=== PATIENT | female | born 1990 | race Two or more races ===

== ENCOUNTER 2023-07-22 13:42 | Emergency (ER) | payer BC, SELFPAY ==
[2023-07-22 13:47] VITALS: BP 176/94
[2023-07-22 14:50] VITALS: BMI 23.4
--- NOTE | 2023-07-22 14:50 | ED.GENMED ---
History of Present Illness
General
Chief Complaint: Heart Rate Problem
Source: patient
Exam Limitations: none
Time Seen by Provider: 07/22/23 14:15
Nursing documentation reviewed up to this point in time: agreed with
Travel History
Have you had any contact with someone who has COVID-19?: No
Do you have any symptoms of coronavirus? Fever > 100 degrees, chills, cough, shortness of breath, sore throat, loss of taste or smell, muscle aches, or headache?: No
History of Present Illness
History of Present Illness:
32-year-old female with no chronic medical issues who presents to the emergency department for evaluation of chest pain, scapular pain and palpitations. Patient reports patient was that she was sick with COVID 2 weeks ago, last week noted she was
started have scapular pain. She describes this as a constant burning sensation. Over the past few days she has noticed that she is having some intermittent sharp chest pains. She has been treating her symptoms with ibuprofen with some
improvement. She says she is having worsening palpitations�she was initially started on Medrol Dosepak last week because she was having persistent COVID symptoms; she noted she was having palpitations and tachycardia with a max heart rate in the
170s and this was initially attributed to the Medrol Dosepak and so it was discontinued. Nevertheless her tachycardia and palpitations have persisted over the past week. She says they are much worse when she lays flat. She denies any shortness of
breath. She denies any known cardiac history.
Review of Systems
Review of Systems
All Other Systems: ROS reviewed and negative except as documented in HPI and ROS
Constitutional: Denies fever or chills
EENT: Reports other (Congestion)
Respiratory: Denies trouble breathing
Cardiac: Reports chest pain and palpitations; Denies diaphoresis
ABD/GI: Denies abdominal pain, nausea, vomiting or diarrhea
: Denies flank pain
Musculoskeletal: Reports back pain (Scapular pain); Denies neck pain
Neurological: Denies dizzy
Phy Exam
Physical Exam
Physical Exam:
General: Awake, alert; no acute distress
Head: Normocephalic, atraumatic
Eyes: Conjunctiva normal
Throat: Airway intact, handling secretions
Neck: Trachea midline, supple without meningismus
Lungs: Clear to auscultation bilaterally, no wheezing, rales, rhonchi
Heart: Tachycardia with regular rhythm, no murmurs, gallops, or rubs
Abd: Soft, non distended, nontender
Neuro: No gross deficits
Skin: no rash
Extremities: No edema in extremities, equal pulses in all extremities
Scores
Heart Failure Risk
Heart Failure Risk Score: Not Applicable
Heart Score for Chest Pain Patients
STEMI patient?: No
History: Slightly or Non-Suspicious
ECG: Normal
Age: </= 45 years
Risk Factors: No Risk Factors
Troponin: </= Normal Limit
Heart Score for Chest Pain Patients: 0
Heart Score Risk: 2.5% MACE over next 6 weeks
Withdrawal Assessment of Alcohol
Withdrawal Assessment Completed?: Not applicable
Course
Orders/Labs/Results
Orders:
Orders
07/22/23 13:48
EKG [Electrocardiogram (*1)] Urgent
Reason for Study: Chest Pain
EKG- Treatment ONCE
07/22/23 14:30
D-Dimer Urgent
07/22/23 14:41
COVID-19 Antigen Urgent
Source: Nasal Swab
Complete Blood Count/With Diff Urgent
Comprehensive Metabolic Panel Urgent
Erythrocyte Sed Rate Urgent
Comment: ADD ON
TSH Reflex To Free T4 Urgent
Troponin I Urgent
07/22/23 14:49
CR Chest - 2 Views Urgent
Comment:
Reason For Exam: chest pain
07/22/23 15:59
CARDIOLOGY CONSULT Urgent
Consulting Provider: Lloyd Ann
Was physician already notified: Yes
07/22/23 16:02
Echo 2D MMode Color/Doppler Urgent
Reason for Study: chest pain, palpitations, tachycardia
Cardiology Consult: Lloyd Ann
07/22/23 17:01
Add On- LAB Urgent
Tests Added?: esr
07/23/23 06:00
Holter Monitor and Scan*(3) IN AM
Reason for Study: palpitations, chest discomfort
Comment: 48 hours. see order in eCW
Abnormal Lab Results
07/22/23
14:41
Hct 35.5 L %
(37.0-47.0)
MPV 10.5 H fL
(7.4-10.4)
Absolute Monos (auto) 0.8 H 10^3/uL
(0.1-0.6)
Monocytes % 10.3 H %
(1.7-9.3)
Glucose 114 H mg/dl
(70-99)
07/22/23 14:41
07/22/23 14:41
Vital Signs
Initial and Last Documented VS:
Initial Vital Signs
Temp Pulse Resp BP Pulse Ox
36.9 C 142 18 176/94 100
07/22/23 13:47 07/22/23 13:47 07/22/23 13:47 07/22/23 13:47 07/22/23 13:47
Last Documented Vital Signs
Temp Pulse Resp BP Pulse Ox
36.9 C 93 15 115/76 99
07/22/23 13:47 07/22/23 17:02 07/22/23 14:51 07/22/23 17:02 07/22/23 17:02
MDM/Problems Addressed
Differential Diagnosis Includes:
Pericarditis, myocarditis, PE, pneumonia, pneumothorax
MDM/Problems Addressed:
32-year-old female presents for evaluation of scapular pain and chest pain, palpitations and tachycardia in the setting of recent COVID infection. Hypertensive and tachycardic in triage. Afebrile, normal pulse ox, normal respiratory rate.
Physical exam as above. EKG shows sinus tachycardia. Plan to check labs including CBC and a CMP, D-dimer, troponin, thyroid studies. Will check chest x-ray. Provide some fluids. Monitor closely reassess after the above.
Initial labs reviewed: CBC unremarkable, CMP no clinically significant abnormalities. Troponin undetectable. D-dimer negative. Thyroid studies normal. COVID was negative. Chest x-ray reviewed) by me shows no acute pathology. She does still
have some resting tachycardia. Discussed with cardiology recommended adding ESR concern for possibly pericarditis; they will evaluate. Will plan for echocardiogram.
Echocardiogram unremarkable. Cardiology evaluated at bedside�work appears been negative plan to discharge and set up for outpatient Holter monitor to be placed tomorrow morning. Patient feels comfortable with this plan. Spoke about return
precautions all questions answered.
Acute Exacerbation and/or Progression of Chronic Illness:
Acute hypertensive
Acute Exacerbation and/or Progression of Chronic Illness: HTN
*Radiology
Radiology exam reviewed: preliminary read by ED provider and radiology read reviewed
*Pulse Oximetry
Patient hypoxic: no
*EKG
Interpreted by ED Provider?: Yes
Heart Rate: 122
Rate: tachycardiac
Rhythm: sinus and sinus tachycardia
[place]: normal axis
Interval: normal interval
QRS Pattern: normal QRS
Ischemia: no ischemia
*Critical Care Note
Total Time (30-74mins, 75-104mins- exclusive of procedures): Not Applicable
Data Reviewed
Source: patient
Patient Management
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
ED Attending Note
-
Portions of this chart may have been created with voice recognition software.� Occasional wrong word or��sound alike� substitutions may have occurred due to the inherent limitations of voice recognition software.
Discharge Plan
Departure
Patient Disposition: Home (Routine Discharge)
Date of Disposition: 07/22/23
Time of Disposition: 17:33
Patient with high blood pressure during this ER visit?: Yes
Discharge Problem:
Palpitations, Chest pain, Tachycardia
Instructions: Palpitations (DC), Chest Pain DCA Follow Up
Referrals:
Nicolas Abbott MD [Active] - Keep scheduled appt
Gurvinder Kramer DO [Family Provider] -
Activity Restrictions/Additional Instructions:
Thank you for visiting the Emergency Department at [facility].
1. Please schedule a follow up appointment as directed. Call first thing tomorrow morning to make an appointment.
2. If indicated, please take your medications as instructed and indicated on discharge paperwork.
3. If any of your symptoms do not improve, or persist, or become more severe within 6-12 hours, please return to the emergency department for further care.
4. Please return to the emergency department if you develop a headache, neck pain/stiffness, fever greater than 100.4F, chest pain, shortness of breath, persistent nausea, vomiting, slurred speech, difficulty walking, numbness/tingling, weakness,
signs of infection or any other symptoms that are worrisome to you.
Please call [phone] if you have any questions.
Interventions
Interventions:
*Risk Screen - Suicide Last Done: 07/22/23 13:46
*General Assessment Last Done: 07/22/23 13:46
*Neglect/Abuse Screening Last Done: 07/22/23 13:46
ED- Fall Risk Assessment Last Done: 07/22/23 13:47
*ED COVID-19 Vaccine History Last Done: 07/22/23 14:52
ED- Cardiac Assessment Last Done: 07/22/23 14:52
ED- Pulmonary Assessment Last Done: 07/22/23 14:52
[2023-07-22 14:51] VITALS: BP 116/75
[2023-07-22 14:55] LABS: % Basophils 0.8 % (0-2); % Immature Granulocytes 0.1 % (0-0.5); % Lymphocytes 42.3 % (20.5-51.1); % Monocytes 10.3 % (1.7-9.3); % Neutrophils 42.5 % (42.2-75.2); Absolute Basophils 0.1 10^3/uL (0-0.2); Absolute Eosinophils 0.3 10^3/uL (0-0.7); Absolute Lymphocytes 3.2 10^3/uL (1.2-3.4); Absolute Monocytes 0.8 10^3/uL (0.1-0.6); Absolute Neutrophils 3.2 10^3/uL (1.4-6.5); Hematocrit 35.5 % (37.0-47.0); Hemoglobin 12.4 g/dL (12.0-16.0); Mean Corp Hgb Conc. 34.9 g/dL (33.0-37.0); Mean Corpuscular Hgb 28.8 pg (27.0-31.0); Mean Corpuscular Volume 82.4 fL (81.0-99.0); Mean Platelet Volume 10.5 fL (7.4-10.4); Nucleated Red Blood Cells % 0 %; Platelet Count 246 10^3/uL (130-400); Red Blood Cell Count 4.31 10^6/uL (4.20-5.40); Red Cell Dist. Width 12.6 % (11.5-14.5); White Blood Cell Count 7.5 10^3/uL (4.8-10.8)
[2023-07-22 15:07] LABS: COVID-19 Antigen Negative (Negative)
[2023-07-22 15:12] LABS: ALT (SGPT) 14 U/L (0-35); AST (SGOT) 21 U/L (14-36); Albumin 4.1 g/dl (3.5-5.0); Alkaline Phosphatase 53 U/L (38-126); Blood Urea Nitrogen 12 mg/dl (7-17); Carbon Dioxide 26 mmol/L (22-30); Chloride 106 mmol/L (98-107); Estimated Creatinine Clearance 109 ml/min; Glucose 114 mg/dl (70-99); Potassium 3.9 mmol/L (3.5-5.1); Sodium 137 mmol/L (135-145); Total Bilirubin 0.5 mg/dl (0.2-1.3); Total Protein 7.1 g/dl (6.3-8.2); eGFR > 60.00
[2023-07-22 15:20] LABS: Troponin I < 0.012 ng/ml
[2023-07-22 15:24] LABS: D-Dimer < 0.27 ug/mlFEU (0.00-0.50)
[2023-07-22 15:40] LABS: TSH Reflex To Free T4 3.68 uIU/ml (0.47-4.68)
--- NOTE | 2023-07-22 16:46 | CON.CAR ---
Addendum entered and electronically signed by Nicolas Abbott MD 07/22/23 17:20:
Attending addendum: Patient seen and examined. PA note reviewed and findings independently confirmed by me. 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
several weeks ago. She has recovered from her COVID viral infection but began noticing intermittent chest and back discomfort as well as palpitations. She was seen in an urgent care facility and started on Solu-Medrol steroid taper. She noticed
intermittent palpitations with no associated dizziness, lightheadedness, syncope, or near syncope. The chest pain persisted intermittently with palpitations and she presented to [place] emergency department for further evaluation. Her troponin,
TSH, chemistries, CBC are within normal limits. An echocardiogram was performed and left ventricular function was normal with no regional wall motion abnormalities. Her electrocardiogram is notable for sinus tachycardia with no acute ST-T changes.
Physical exam
GEN: Young female who is seen sitting in bed. She is AAO x 3. No acute distress
HEENT: NC/AT, sclera are anicteric,
LUNGS: Clear to bases bilaterally. No wheezing or rhonchi
CV: Regular rate and rhythm. Tachycardic. Normal S1/S2. No S3, No S4. Murmur: None
ABD : Soft, NT, ND, No HSM. Bowel sounds are present.
EXT: No CCE
NEURO: No focal neurologic deficits
Echo 07/22/2023: LV: Normal size and function. EF hyperdynamic 65-70%. No WMA. RV: Normal, LA: Normal, RA: Normal, MV: No MR, AV: Trileaflet. No AAS or AI, TV: Normal with inability to estimate PAP given lack of TR jet.
Impression:
-Atypical chest discomfort
-Resting tachycardia with sinus tachycardia noted.: Normal echocardiogram, no anemia or thyroid issues. She is not febrile. Inappropriate sinus tachycardia
Recommendations:
-For completeness sake a 48-hour Holter will be placed
-Not sure if she will need any additional cardiovascular evaluation
Original Note:
Consultation
Consultation Request
Date/Time Consultation Performed: 07/22/23
Requesting Provider: Dr. Hassan
Performing Provider: Juliette Salgado PA-C for Dr. Abbtot
Reason for Consultation: palpitations, chest discomfort
Medical History
-
Chief Complaint: CP, palpitations
History of Present Illness:
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 She states she was pretty sick with this. She began to develop chest discomfort and tightness as well as
back discomfort. This was felt to be secondary to cough and she started ibuprofen. She had gone to urgent care and was prescribed a Medrol Dosepak. The day after she began her Medrol Dosepak she started with palpitations. On review of heart rate
ese on her phone, heart rates up into the 180s at times. She continued with pleuritic chest discomfort and heart racing. Due to this she stopped her steroids and ibuprofen. This past Thursday 07/20 she felt fine, however 4 AM Wednesday morning
developed recurrent palpitations requiring her to sit up to sleep. She also developed 10 out of 10 central discomfort. She restarted ibuprofen, with some relief. She states whenever her heart rate exceeds 120 she can feel her heart beating in her
ears and hands. She also reports the feeling of recent 'hot flashes'. She is COVID-negative today in the ER. Troponin negative x 1. Cardiology consulted for evaluation. Denies history of cardiac issues including prior arrhythmia or
palpitations. Denies thyroid issues. Denies family history of clotting disorders.
PMH:
none
Past Medical History
Past Medical History: None
Social History
Personal:
Living: With Family
Employment: Employed
Family History
Family History: CAD (family history of VA at 55 in father)
Allergies / Home Medications
Allergy/AdvReac Type Severity Reaction Status Date / Time
No Known Allergies Allergy Unverified 07/22/23 13:46
Review of Systems
-
History Source: Patient
All other systems: Negative unless noted
Physical Exam
Vital Signs
Temp Pulse Resp BP Pulse Ox
98.4 F 105 15 116/75 100
07/22/23 13:47 07/22/23 14:51 07/22/23 14:51 07/22/23 14:51 07/22/23 14:51
Lab Results
07/22/23 14:41
07/22/23 14:41
Troponin I < 0.012 ng/ml 07/22/23 14:41
Physical Exam
General: No Apparent Distress and Comfortable
HEENT: Normocephalic, Anicteric and Moist Mucous Membranes
Respiratory: Clear and Non Labored Respirations
Cardiac: S1/S2 and Regular Rhythm
GI: Soft, Non Tender, Non Distended and Normal Bowel Sounds
Musculoskeletal: No Clubbing, No Cyanosis and No Edema
Skin: Warm and Dry
Neuro: AO x 3
Impression / Plan
-
Primary Correctional Supervisor: none
Assessment:
Pleuritic chest/back discomfort
Palpitations
Sinus tachycardia
Cough
Recent covid illness
Negative troponin x1
ECHO 07/22/23: pending
Plan:
-Patient presents with pleuritic chest and back discomfort as well as palpitations in the setting of recent COVID illness. tested covid negative in ER
-EKG sinus tachycardia
-Troponin negative x 1
-echo pending
-hold on further steroids
-ESR pending
-will plan for 48 hour holter monitor to be placed in AM, cardiac services to call patient in AM
-continue supportive care of recent covid illness, including adequate hydration
Data Reviewed
-
EKG: Tracing Personally Visualized and interpreted
Labs: Labs Reviewed by me
[2023-07-22 17:02] VITALS: BP 115/76
[2023-07-22 17:51] LABS: Erythrocyte Sed Rate 11 mm/hour (0-20)
== END 2023-07-22 17:54 | disposition home or self-care (01) ==
LOC: EMR 13:42
PROVIDERS: CONSULT PHYSICIAN Nuclear Medicine Nuclear Cardiology; EMERGENCY PHYSICIAN Emergency Medicine; FAMILY PHYSICIAN Family Medicine
DX: R00.2 Palpitations (principal); R07.89 Other chest pain; R00.0 Tachycardia, unspecified; Z82.49 Family history of ischemic heart disease and other diseases of the circulatory system
CPT/HCPCS: 99283; 71046; 80053; 84443; 84484; 85025; 85379; 85652; 87811; 93005; 93306

== ENCOUNTER → 2023-07-23 09:56 | Outpatient (REF) | payer BC, SELFPAY | LOC: RCS 09:56 | PROVIDERS: ATTENDING PHYSICIAN Internal Medicine Interventional Cardiology; FAMILY PHYSICIAN Family Medicine | DX: R00.2 Palpitations (principal); R00.0 Tachycardia, unspecified; R07.89 Other chest pain | CPT/HCPCS: 93225; 93226 ==

== ENCOUNTER → 2023-12-13 05:50 | Outpatient (REF) | payer BC, SELFPAY | LOC: EMG 05:50 | PROVIDERS: ATTENDING PHYSICIAN Orthopaedic Surgery; FAMILY PHYSICIAN Family Medicine | DX: R20.0 Anesthesia of skin (principal) | CPT/HCPCS: 95886; 95910 ==

== ENCOUNTER → 2023-12-18 07:25 | Outpatient (REF) | payer BC, SELFPAY | LOC: MRI 3T 07:25 | PROVIDERS: ATTENDING PHYSICIAN Orthopaedic Surgery; FAMILY PHYSICIAN Family Medicine | DX: M25.521 Pain in right elbow (principal) | CPT/HCPCS: 73221 ==

== ENCOUNTER 2024-01-31 21:23 | Emergency (ER) | payer BC, SELFPAY ==
[2024-01-31 21:27] VITALS: BP 156/88
[2024-01-31 22:00] VITALS: BP 119/76; BMI 25.3
[2024-01-31 22:14] LABS: % Basophils 0.5 % (0-2); % Eosinophils 2.5 % (0-6); % Immature Granulocytes 0.5 % (0-0.5); % Lymphocytes 19.7 % (20.5-51.1); % Monocytes 8.4 % (1.7-9.3); % Neutrophils 68.4 % (42.2-75.2); Absolute Eosinophils 0.2 10^3/uL (0-0.7); Absolute Lymphocytes 1.2 10^3/uL (1.2-3.4); Absolute Monocytes 0.5 10^3/uL (0.1-0.6); Absolute Neutrophils 4.1 10^3/uL (1.4-6.5); Hematocrit 30.7 % (37.0-47.0); Hemoglobin 10.7 g/dL (12.0-16.0); Mean Corp Hgb Conc. 34.9 g/dL (33.0-37.0); Mean Corpuscular Hgb 28.2 pg (27.0-31.0); Mean Platelet Volume 10.5 fL (7.4-10.4); Nucleated Red Blood Cells % 0 %; Platelet Count 152 10^3/uL (130-400); Red Blood Cell Count 3.79 10^6/uL (4.20-5.40); Red Cell Dist. Width 13.2 % (11.5-14.5)
[2024-01-31 22:27] LABS: Lactic Acid 1.3 mmol/L (0.7-2.0)
[2024-01-31] MEDS: TYLENOL 1000 MG PO (22:32)
[2024-01-31 22:45] LABS: HCG, Serum Qualitative Screen Negative
[2024-01-31 22:54] LABS: ALT (SGPT) 17 U/L (0-35); AST (SGOT) 23 U/L (14-36); Albumin 3.9 g/dl (3.5-5.0); Alkaline Phosphatase 51 U/L (38-126); Blood Urea Nitrogen 12 mg/dl (7-17); Calcium 9.3 mg/dl (8.4-10.2); Carbon Dioxide 27 mmol/L (22-30); Chloride 104 mmol/L (98-107); Estimated Creatinine Clearance > 125 ml/min; Glucose 114 mg/dl (70-99); Potassium 3.8 mmol/L (3.5-5.1); Sodium 141 mmol/L (135-145); Total Bilirubin 0.4 mg/dl (0.2-1.3); Total Protein 6.5 g/dl (6.3-8.2); eGFR > 60.00
[2024-01-31 23:01] VITALS: BP 100/81
[2024-01-31] MEDS: NSS 1000 IV (23:25)
--- NOTE | 2024-01-31 23:50 | ED.GENMED ---
History of Present Illness
General
Chief Complaint: Fever
Source: patient and previous hospital records (Previous ED visit July of this year with complaints of chest pain/palpitations. Unremarkable ED evaluation as well as cardiology evaluation, echocardiogram within normal limits and follow-up Holter
monitor unremarkable)
Exam Limitations: none
Time Seen by Provider: 01/31/24 22:44
Nursing documentation reviewed up to this point in time: agreed with
History of Present Illness
History of Present Illness:
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 She admits to subjective fevers,
fatigue, malaise. She does have history of migraine headaches and states she suffered a migraine headache on Wednesday, January 25 associated with nausea and vomiting. Headache resolved with rest and a dose of naproxen. Then yesterday while in the
[place] prior to to [place] the airplane migraine returned accompanied with approximately 5 episodes of vomiting. She was evaluated at the health clinic at the airport and was given an antiemetic as well as naproxen with resolution of symptoms.
She was afebrile during that health clinic visit at the airport.
She reports COVID testing x 2 this past week have been negative.
She has not had a cough, no sore throat, no nasal congestion throughout the week but does admit to mild discomfort right ear after landing today and mild discomfort this afternoon right submandibular gland but continues to deny sore throat.
She is concerned for a small ecchymotic patch left forearm, small ecchymotic patch left anterior ankle that she noticed 2 to 3 days ago. No insightful injury. She denies itch.
Beginning 2 to 3 days ago she developed bilateral ankle edema, discomfort and a sense of mild swelling bilateral lower legs left leg greater than the right. She does admit to mild shortness of breath this evening and was unaware that she was
running a fever. Prior to tonight she has had no shortness of breath. She denies chest pain or palpitations, no abdominal pain, no neck pain, no back pain, no UTI symptoms. Appetite has been good.
She has had no diarrhea nor constipation.
She denies risk of , last normal menstrual period January 17, 2024.
No close contacts with similar symptoms.
She is sexually active, 1 partner.
She takes no medicines on a daily basis.
She did take a dose of naproxen around 12:30 PM today for generalized aches.
Past History
Past History
ED Past Medical History: Other (Migraine headaches) and Other (COVID URI July 2023)
ED Past Surgical History: None
Social History
Tobacco: Non-smoker
Alcohol: None
Drug: None
Living: with family
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
Family History
Family History: Other (Noncontributory)
Phy Exam
Physical Exam
Physical Exam:
GENERAL: 33-year-old woman appears her stated age, bright and alert, pleasant, appears in no acute distress. Noted to be febrile, initial oral temperature 101.4 �F.
EYE: pupils equal and reactive. anicteric
NECK: Supple, nontender, no meningismus, no significant adenopathy.
ENT: posterior pharynx is clear, oral mucosa is moist. Scant clear effusion behind noninjected right TM. Left TM is clear. Nares have significantly boggy mildly injected turbinates without mucopus.
CARDIAC: Regular rate and rhythm. no murmur. No rub.
LUNGS: no acute respiratory distress, intermittent scant rales right base otherwise clear to auscultation. Rare brief cough is noted.
ABDOMEN: Soft, nondistended, without focal tenderness, no r/g, no cvat. normoactive BS.
NEUROLOGICAL: Alert and oriented x3, no focal neuro deficits.
SKIN: Warm and dry, normal color, skin intact. There is a 3 cm ecchymotic patch left forearm, 2 to 3 cm vague ecchymotic patch left anterior ankle. There is no petechiae. Few scattered punctate minimally inflamed hair follicles bilateral lower
legs but no evidence of folliculitis.
MUSCULOSKELETAL: Very mild soft tissue swelling versus mild joint effusion bilateral ankles left greater than right but no joint erythema. Mild tenderness to left anterior ankle overlying vague ecchymotic patch. Peripheral pulses are full and
equal b/l.
PSYCH: Normal and appropriate interaction.
Course
Orders/Labs/Results
Orders:
Orders
01/31/24 22:02
Test Result ONCE
01/31/24 22:06
C-Reactive Protein Urgent
CMP [Comprehensive Metabolic Panel] Urgent
Complete Blood Count/With Diff Urgent
Erythrocyte Sed Rate Urgent
Comment: ADD ON
HCG, Serum Qualitative Screen Urgent
Lactic Acid Urgent
Lyme Progressive Urgent
01/31/24 22:30
Acetaminophen [Tylenol] 1,000 mg .ROUTE .STK-MED ONE
01/31/24 22:31
Acetaminophen [Tylenol] 1,000 mg PO NOW STA
01/31/24 23:06
Add On- LAB Urgent
Tests Added?: sed rate, CRP, lyme progressive
Urinalysis Reflex To Culture Urgent
Date Specimen was Collected: 01/31/24
Time Specimen was Collected: 23:18
01/31/24 23:07
CR Chest - 2 Views Urgent
Comment:
Reason For Exam: fever, intermittent cough
US Periph Venous LOWER Ext Ravi Urgent
Comment:
Reason For Exam: b/l LE edema. recent lengthy air travel
01/31/24 23:08
0.9% Sodium Chloride 1000 ml [Nss] 1,000 ml IV BOLUS
01/31/24 23:19
Blood Culture Routine
NIKKIE Source: Blood/Venous
Specimen Description:
Blood Culture Urgent
NIKKIE Source: Blood/Venous
Specimen Description:
Abnormal Lab Results
01/31/24
22:06
RBC 3.79 L 10^6/uL
(4.20-5.40)
Hgb 10.7 L g/dL
(12.0-16.0)
Hct 30.7 L %
(37.0-47.0)
MPV 10.5 H fL
(7.4-10.4)
Lymphocytes % 19.7 L %
(20.5-51.1)
Glucose 114 H mg/dl
(70-99)
01/31/24 22:06
01/31/24 22:06
Vital Signs
Initial and Last Documented VS:
Initial Vital Signs
Temp Pulse Resp BP Pulse Ox
101.4 F H 127 22 156/88 99
01/31/24 21:27 01/31/24 21:27 01/31/24 21:27 01/31/24 21:27 01/31/24 21:27
Last Documented Vital Signs
Temp Pulse Resp BP Pulse Ox
98.3 F 86 14 119/76 100
01/31/24 22:00 01/31/24 22:45 01/31/24 22:45 01/31/24 22:00 01/31/24 22:45
MDM/Problems Addressed
Differential Diagnosis Includes:
Acute febrile illness that appears to have begun prior to air travel to [facility]. May be viral syndrome, pneumonia, Lyme disease, acute inflammatory arthropathy, UTI, bacteremia, SIRS.
Thus far CBC reveals normal white blood cell count of 6.0. Mild anemia with hemoglobin of 10.7. Normal differential. Lactic acid is normal. Chemistries are pending.
Will add sed rate, CRP, Lyme titer. Will check urinalysis with reflex to urine culture.
Will check chest x-ray and due to recent air travel, complaints of bilateral lower leg swelling will check venous Doppler bilateral lower extremities.
Patient has been given Tylenol for fever and will initiate IV fluids.
COVID testing x 2 has been negative. No indication to repeat.
*Radiology
Radiology exam reviewed: preliminary read by ED provider (Chest x-ray is unremarkable. Clear lung mendoza.) and other (Venous Doppler bilateral lower extremities negative for DVT)
*Pulse Oximetry
Patient hypoxic: no
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
Rate: normal
Interpretation: normal
Rhythm: sinus
*Critical Care Note
Total Time (30-74mins, 75-104mins- exclusive of procedures): Not Applicable
Update Note
Update Note:
02/01/2024 0128 AM
Fever has dissipated with Tylenol and IV fluids.
Patient resting comfortably.
Labs are all unremarkable. Negative inflammatory markers, normal urinalysis, unremarkable chemistries. Lyme titer is pending.
Chest x-ray is unremarkable and bilateral lower leg ultrasounds are negative for DVT.
I suspect fever is viral in nature and recommend she continue with supportive measures, rest, stay well-hydrated, Tylenol versus NSAID for as needed fever.
Recommend she stay home from work until fever free for 24 hours and an out of work note has been provided for the next 2 days.
Prompt follow-up with PCP for recheck.
ED Attending Note
-
Portions of this chart may have been created with voice recognition software.� Occasional wrong word or��sound alike� substitutions may have occurred due to the inherent limitations of voice recognition software.
Discharge Plan
Departure
Patient Disposition: Home (Routine Discharge)
Date of Disposition: 02/01/24
Time of Disposition: 01:27
Patient with high blood pressure during this ER visit?: No
Condition: Good
Discharge Problem:
Acute viral syndrome
Instructions: Fever, Adult (DC), Viral Syndrome (DC)
Referrals:
Gurvinder Kramer, DO [Family Provider] - Call in 1-3 days for appt
Stand Alone Forms: Return to Work
Interventions
Interventions:
*Risk Screen - Suicide Last Done: 01/31/24 22:00
*General Assessment Last Done: 01/31/24 22:00
*Neglect/Abuse Screening Last Done: 01/31/24 22:00
ED- Fall Risk Assessment Last Done: 01/31/24 22:47
*ED COVID-19 Vaccine History Last Done: 01/31/24 22:00
ED- Neurological Assessment Last Done: 01/31/24 22:47
ED-Skin Assessment Last Done: 01/31/24 22:47
Discharge Date and Time
Print Language: BRITISH
[2024-02-01 00:12] LABS: Erythrocyte Sed Rate 15 mm/hour (0-20)
[2024-02-01 00:20] LABS: C-Reactive Protein < 5.00 mg/L (0.0-10.00)
[2024-02-01 00:43] VITALS: BP 125/83
[2024-02-01 00:51] LABS: Urine Albumin Negative (Neg - Trace); Urine Bilirubin Negative (Negative); Urine Character Clear (Clear); Urine Color Yellow; Urine Glucose Negative (Negative); Urine Ketone Negative (Negative); Urine Leukocyte Negative (Negative); Urine Nitrite Negative (Negative); Urine Occult Blood Negative (Negative); Urine Specific Gravity 1.005 (<1.030); Urine Urobilinogen Negative (Neg - 1+)
[2024-02-01 01:01] VITALS: BP 111/80
[2024-02-03 13:55] LABS: Lyme Antibody Screen, EIA Negative (Negative)
== END 2024-02-01 01:46 | disposition home or self-care (01) ==
LOC: EMR 21:23
PROVIDERS: EMERGENCY PHYSICIAN Emergency Medicine; FAMILY PHYSICIAN Family Medicine
DX: B34.9 Viral infection, unspecified (principal); H92.01 Otalgia, right ear; R58 Hemorrhage, not elsewhere classified; R60.0 Localized edema; R06.02 Shortness of breath; D64.9 Anemia, unspecified; G43.909 Migraine, unspecified, not intractable, without status migrainosus; Z86.16 Personal history of COVID-19
CPT/HCPCS: 99284; 96360; 71046; 80053; 81003; 83605; 84703; 85025; 85652; 86140; 86618; 87040; 93970

== ENCOUNTER → 2024-02-26 09:50 | Outpatient (REF) | payer OTHER, SELFPAY ==
[2024-02-28 05:18] LABS: Quantiferon Mitogen minus NIL 9.96 IU/mL; Quantiferon NIL 0.04 IU/mL; Quantiferon Plus TB1 minus NIL 0.18 IU/mL (<=0.34); Quantiferon Plus TB2 minus NIL 0.25 IU/mL (<=0.34); Quantiferon TB Gold Plus Negative (Negative)
== END ==
LOC: REG 09:50
PROVIDERS: ATTENDING PHYSICIAN Nurse Practitioner
DX: Z23 Encounter for immunization (principal)
CPT/HCPCS: 86480

== ENCOUNTER → 2024-06-07 14:48 | Outpatient (REF) | payer OTHER, SELFPAY ==
[2024-06-08 13:31] LABS: Varicella Zoster IgG (VZV) Positive
== END ==
LOC: OHS 14:48
PROVIDERS: ATTENDING PHYSICIAN Nurse Practitioner Family
DX: Z23 Encounter for immunization (principal)
CPT/HCPCS: 36415; 86787

== ENCOUNTER 2024-07-02 12:59 | Emergency (ER) | payer BC, SELFPAY ==
[2024-07-02 13:09] VITALS: BP 127/83
--- NOTE | 2024-07-02 14:20 | EDRN ---
Holland EMMANUEL in room w/ pt at this time.
--- NOTE | 2024-07-02 14:38 | ED.GENMED ---
History of Present Illness
<Carmencita Douglas PA-C - Last Filed: 07/02/24 19:16>
General
Chief Complaint: Skin Problem
Source: patient
Exam Limitations: none
Time Seen by Provider: 07/02/24 14:16
Nursing documentation reviewed up to this point in time: agreed with
History of Present Illness
History of Present Illness:
Patient is a 33-year-old female presenting with redness and swelling to nose. Patient reports initially noticing mild redness and pain on her left nostril approximately 4 to 5 days ago. She felt the area was red and warm. Patient reports
worsening pain and felt redness and swelling so she started a course of Augmentin. Today -patient states pain is more severe around 4 AM waking her up. She feels the pain was radiating into her left ear. Patient was seen at an urgent care
facility for evaluation concerned she might have a facial abscess and sent to the emergency department for CT scan.
Just prior to my assessment�patient feels that 'abscess 'has popped and is not draining. She reports some improvement in symptoms.
Patient denies any prior MRSA history.
Past History
<Carmencita Douglas PA-C - Last Filed: 07/02/24 19:16>
Past History
ED Past Medical History: Other (Migraine headaches) and Other (COVID URI July 2023)
ED Past Surgical History: None
Social History
Tobacco: Non-smoker
Alcohol: None
Drug: None
Living: with family
Employment: Employed ([facility] resident)
Family History
Family History: Other (Noncontributory)
Review of Systems
<Carmencita Douglas PA-C - Last Filed: 07/02/24 19:16>
Review of Systems
Allergies reviewed?: Yes
All Other Systems: ROS reviewed and negative except as documented in HPI and ROS
Phy Exam
<Carmencita Douglas PA-C - Last Filed: 07/02/24 19:16>
Physical Exam
Physical Exam:
Vitals: Patient's vital signs are stable. Afebrile
General: Patient is well appearing, no acute distress. Nontoxic appearing
Skin: Warm and dry, no rashes or lesions
Head: Normocephalic, atraumatic
Ears: Left ear canal patent with clear TM and visible landmarks.
Nose: Very mild erythema to the left nasal ala and inside left nostril with overlying tenderness. No warmth. Mild tenderness over left maxillary sinus without any overlying erythema or warmth.
Throat: No pharyngeal erythema. Uvula midline. Protecting airway
Neck: Normal ROM, no cervical spine tenderness
Cardiac: Regular rate
Pulm: No apparent respiratory distress
Abdomen: Nondistended
Extremities: No evidence of cyanosis or edema
Neuro: Grossly intact
Psychiatric: Normal affect.
Sepsis
<Carmencita Douglas PA-C - Last Filed: 07/02/24 19:16>
Sepsis Screening
Sepsis Assessment: Sepsis Ruled Out
Sepsis Screen
Sepsis Screen: Sepsis Ruled Out
Date: 07/02/24
Time: 19:13
Course
<CANDICE Wilkerson Last Filed: 07/02/24 19:16>
Orders/Labs/Results
Orders:
Orders
07/02/24 15:00
Wound Culture [Wound/Abscess/Other Culture] Urgent
NIKKIE Source: Face
Specimen Description: Left
Date Specimen was Collected: 07/02/24
Time Specimen was Collected: 14:59
Comment: Left nostril
Vital Signs
Initial and Last Documented VS:
Initial Vital Signs
Temp Pulse Resp BP Pulse Ox
98 F 78 18 127/83 100
07/02/24 13:09 07/02/24 13:09 07/02/24 13:09 07/02/24 13:09 07/02/24 13:09
Last Documented Vital Signs
Temp Pulse Resp BP Pulse Ox
98 F 78 18 127/83 100
07/02/24 13:09 07/02/24 13:09 07/02/24 13:09 07/02/24 13:09 07/02/24 13:09
<Naun Steiner DO - Last Filed: 07/02/24 14:46>
Orders/Labs/Results
Orders:
Orders
07/02/24 15:00
Wound Culture [Wound/Abscess/Other Culture] Urgent
NIKKIE Source: Face
Specimen Description: Left
Date Specimen was Collected: 07/02/24
Time Specimen was Collected: 14:59
Comment: Left nostril
Vital Signs
Initial and Last Documented VS:
Initial Vital Signs
Temp Pulse Resp BP Pulse Ox
98 F 78 18 127/83 100
07/02/24 13:09 07/02/24 13:09 07/02/24 13:09 07/02/24 13:09 07/02/24 13:09
Last Documented Vital Signs
Temp Pulse Resp BP Pulse Ox
98 F 78 18 127/83 100
07/02/24 13:09 07/02/24 13:09 07/02/24 13:09 07/02/24 13:09 07/02/24 13:09
<Carmencita Douglas PA-C - Last Filed: 07/02/24 19:16>
MDM/Problems Addressed
Differential Diagnosis Includes:
Not limited to: Nasal abscess, sinusitis, cellulitis, nasal polyp, etc.
MDM/Problems Addressed:
33-year-old female presenting with erythema and tenderness inside left nostril over the past few days currently on Augmentin. No fever or other signs of infection. No headache. Vital signs are stable, patient is afebrile. Physical exam as above.
It appears that prior to my examination�possible abscess has begun to drain. No evidence of cellulitis of face or nose. No indication for CT scan. Although patient has no risk factors for MRSA - she is concerned of this and will obtain swab to
rule out MRSA infection. Patient will continue Augmentin to cover possible infection/sinusitis. She will also start topical mupirocin. Close return precautions discussed. Patient stable for discharge
Chronic conditions affecting care:
N/A
Acute Exacerbation and/or Progression of Chronic Illness:
N/A
<Carmencita Douglas PA-C - Last Filed: 07/02/24 19:16>
*Pulse Oximetry
Patient hypoxic: no
*EKG
Interpreted by ED Provider?: NA
*Air Vice Marshal Interpretation
Rate: Air Vice Marshal- N/A
*Critical Care Note
Total Time (30-74mins, 75-104mins- exclusive of procedures): Not Applicable
ED Attending Note
<Carmencita Douglas PA-C - Last Filed: 07/02/24 19:16>
-
Portions of this chart may have been created with voice recognition software.� Occasional wrong word or��sound alike� substitutions may have occurred due to the inherent limitations of voice recognition software.
<Naun Steiner DO - Last Filed: 07/02/24 14:46>
ED Attending Note
Patient seen and examined by attending physician: Yes
I performed the substantive portion of visit, reviewed & personally made and approve the management plan that is documented in note by myself or BALTAZAR.: Yes
ED Attending Note:
I have seen and evaluated the patient with a [id number] encounter. I have spoken to the advance practicer provider and involved in the medical history, the physical exam, medical decision making.
Evaluation and management service: agree unless noted differently below.
Results interpretation: agree unless noted differently below.
Focused HPI: 33-year-old female presenting for evaluation of swelling and tenderness of her left nostril. Patient noticed a bump in the inside of her nose. She was concern for possible abscess. She started Augmentin. She went to urgent she felt
the pain was radiating to her left cheek. Urgent care suggested emergency department evaluation for CT scan
Physical exam: Well-appearing nontoxic. Very mild edema and erythema noted to the inside of her left nostril
Medical Decision Making: When entered the room, it appears that the abscess started to drain when she blew her nose. There is no indication for a CT scan. Patient agrees. Patient concern for possible MRSA. Will swab for MRSA. Patient will start
mupirocin ointment as well
Discharge Plan
Departure
Patient Disposition: Home (Routine Discharge)
Date of Disposition: 07/02/24
Time of Disposition: 14:49
Patient with high blood pressure during this ER visit?: No
Covid-19: Not Applicable
Discharge Problem:
Healing abscess of left nostril
Instructions: Skin Abscess
Referrals:
Gurvinder Kramer, DO [Family Provider] - As needed
Activity Restrictions/Additional Instructions:
Return to the emergency department with any high fevers, significant increase in redness, swelling, warmth of left nostril/face, worsening in current symptoms, or any other concerns
-As discussed-bacterial swab was sent today. We will contact you if this is positive for MRSA.
-You can complete course of Augmentin as prescribed. You may apply mupirocin to affected area few times a day while it heals.
Monitor your symptoms closely and return to the emergency department with any acute worsening/ new symptoms or any other concerns
Interventions
Interventions:
*Risk Screen - Suicide Last Done: 07/02/24 13:09
*General Assessment Last Done: 07/02/24 14:55
*Neglect/Abuse Screening Last Done: 07/02/24 13:09
ED- Fall Risk Assessment Last Done: 07/02/24 14:55
*ED COVID-19 Vaccine History Last Done: 07/02/24 14:55
*Nursing Disposition Last Done: 07/02/24 15:00
ED-Skin Assessment Last Done: 07/02/24 14:55
Discharge Date and Time
Discharge Date/Time: 07/02/24 15:00
Print Language: [place]
--- NOTE | 2024-07-02 14:41 | EDRN ---
Dr. Steiner in room w/ pt at this time.
[2024-07-02 14:55] VITALS: BMI 23.4
== END 2024-07-02 15:00 | disposition home or self-care (01) ==
LOC: EMR 12:59
PROVIDERS: EMERGENCY PHYSICIAN Student in an Organized Health Care Education/Training Program; FAMILY PHYSICIAN Family Medicine
DX: J34.0 Abscess, furuncle and carbuncle of nose (principal); Z79.2 Long term (current) use of antibiotics; Z86.16 Personal history of COVID-19
CPT/HCPCS: 99282; 87070; 87147; 87186; 87205

== ENCOUNTER → 2025-02-28 09:38 | Outpatient (REF) | payer BC, SELFPAY ==
[2025-02-28 11:33] LABS: TSH 3.13 uIU/ml (0.47-4.68)
[2025-03-01 10:50] LABS: Lyme Antibody Screen, EIA Negative (Negative); Rheumatoid Agglutinin Less Than 10 IU (<10 IU)
[2025-03-02 22:57] LABS: ANA, IgG Reflex to HEp-2 None Detected (None Detected)
== END ==
LOC: REG 09:38
PROVIDERS: ATTENDING PHYSICIAN Family Medicine
DX: M25.50 Pain in unspecified joint (principal); R53.83 Other fatigue; G43.909 Migraine, unspecified, not intractable, without status migrainosus
CPT/HCPCS: 36415; 84443; 85652; 86038; 86430; 86618

== ENCOUNTER → 2025-05-15 09:16 | Outpatient (REF) | payer BC, SELFPAY | LOC: WDC 09:16 | PROVIDERS: ATTENDING PHYSICIAN Advanced Practice Midwife; FAMILY PHYSICIAN Family Medicine | DX: N63.0 Unspecified lump in unspecified breast (principal) | CPT/HCPCS: 76642; 77062; 77066 ==